=== PATIENT | male | born 1945 | race Caucasian/White ===

== ENCOUNTER 2016-10-10 09:14 | Day surgery (SDC) | payer MEDICARE, BC ==
--- NOTE | ~2016-10-10 | OP ---
Record Of Operation [facility] [address] [place]. [address] NAME: DIANE CHAMBERS : 47 STATUS : [facility]#: [id number] AGE: 71 ADM/REG DATE : 10/10/16 MR#: [id number] REPORT SERV DATE: 10/10/16 DICTATED BY: ASHLEY PITT DATE: 10/10/16 REPORT STATUS : Draft TRANSCRIBED BY: MODL DATE: 10/10/16 DATE OF PROCEDURE: 10/10/2016 PREOPERATIVE DIAGNOSIS: Moderate dysplasia, right anterolateral tongue. POSTOPERATIVE DIAGNOSIS: Moderate dysplasia, right anterolateral tongue. PROCEDURE PERFORMED: 1. Right partial glossectomy. 2. Layered closure of 6 x 3 cm defect. SURGEON: Ashley Pitt M.D. STEEL CUTTER: None. ANESTHESIA: General. COMPLICATIONS: None. CONDITION: Stable to recovery. 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 The risks, benefits, and alternatives to excision were explained and he agreed. PROCEDURE IN DETAIL: The patient was identified in preop holding, taken back to the operating room, and placed supine on the operating room table. MAC general anesthesia was established using nasotracheal intubation. He was prepped and draped in a standard fashion for the operation. A time-out was called. The patient and procedure were confirmed. The lip guard was placed and a Michael mouth gag was used to open the mouth. The tongue was clipped in the midline with a towel clip and retracted out of the oral cavity. The anterolateral tongue had an area of leukoplakia that was 3 x 4 x 3 cm with a central area of ulceration. A 1 cm to 1.5 cm margin was marked around the area of ulceration and a smaller margin around the thin leukoplakia. It was then infiltrated subcutaneously with 1% lidocaine with 1:100,000 epinephrine, a total of 3 mL. The lesion was then excised using needle-tip cautery down to the extrinsic muscles of the anterolateral tongue. There was no induration or deep tumor noted. The edges of the surgical specimen appeared healthy mucosa. The wound was 6 cm in length by 3 cm in width and closed in two layers using 3-0 Vicryl interrupted sutures. The Michael mouth gag and the lip guard were removed. The lip retractor was removed. The patient was awakened and taken to the recovery in stable condition. There were no complications. PH/MODL Record Of [place] [address] [place]. [address] NAME: DIANE CHAMBERS : 47 STATUS : [facility]#: [id number] AGE: 71 ADM/REG DATE : 10/10/16 MR#: [id number] REPORT SERV DATE: 10/10/16 DICTATED BY: ASHLEY PITT DATE: 10/10/16 REPORT STATUS : Draft TRANSCRIBED BY: MODL DATE: 10/10/16 Ashley Pitt M.D. / [id number] CC: Farhan Helms DO
[~2016-10-10 09:14] MED LIST: LOTE10 PO; LOTENSIN HCT1 TA3 PO
== END 2016-10-10 17:22 | disposition home or self-care (01) ==
LOC: SDC 09:14
PROVIDERS: Specialist
PROC: 0CB70ZZ Excision of Tongue, Open Approach (ICD-10-PCS; principal; 2016-10-10 10:45)
DX: C02.3 Malignant neoplasm of anterior two-thirds of tongue, part unspecified (principal); K13.21 Leukoplakia of oral mucosa, including tongue; I10 Essential (primary) hypertension; G47.33 Obstructive sleep apnea (adult) (pediatric); H40.9 Unspecified glaucoma; Z96.651 Presence of right artificial knee joint; Z96.1 Presence of intraocular lens; Z98.41 Cataract extraction status, right eye; Z98.42 Cataract extraction status, left eye; Z98.890 Other specified postprocedural states; Z79.899 Other long term (current) drug therapy; Z85.828 Personal history of other malignant neoplasm of skin
CPT/HCPCS: 80048; 85014; 85018; 88309; 88341; 88342; 93005; A9270-GY; J0690; J2250; J2270; J2405; J2710; J3010